=== PATIENT | female | born 1945 | race African-American/Black ===

== ENCOUNTER 2016-03-21 17:49 | Emergency (ER) | payer BC ==
[~2016-03-21] VITALS: Ht 167.6 cm; Wt 52.6 kg
[~2016-03-21 17:49] MED LIST: NKM
[2016-03-21 18:07] VITALS: BP 127/83
--- NOTE | 2016-03-21 18:32 | Emergency Room Report ---
History of Present Illness General Chief Complaint: Chest Pain Source: Patient Present Illness HPI She ate at [employer] and started feeling a strange feeling in her chest. She passed a lot of gas and burped at that time. She had laboratory done 3 weeks ago which was normal. She was concerned about her chest and came in for evaluation. She is squeamish about the emergency department and only wants a minimal work-up with EKG. Treadmill 3 years ago was normal. No [place], fever, cough, NVD, dyspnea, diaphoresis. Risk factors: none Allergies: Coded Allergies: SULFA (SULFONAMIDE ANTIBIOTICS) (Verified Allergy, 01/17/13) Patient History Past Medical History: see triage record Social History: Denies: smoking Social History Narrative works at [employer] Now: No Reviewed Nursing Documentation: PMH: Agreed, PSxH: Agreed Nursing Documentation-PMH Past Medical History: No Stated History Review of Systems All Other Systems: negative except mentioned in HPI Physical Exam Vital Signs Date Time Temp Pulse Resp B/P Pulse Ox O2 Delivery O2 Flow Rate FiO2 03/21/16 17:59 98.8 93 17 151/96 98 Sp02 EP Interpretation: reviewed, normal General Appearance: well appearing, no apparent distress, alert, GCS 15, non- toxic, thin Head: normocephalic Eyes: bilateral eye PERRL, bilateral eye normal inspection ENT: moist mucus membranes Neck: supple Respiratory: lungs clear, normal breath sounds Cardiovascular #1: regular rate, rhythm Cardiovascular #2: 2+ radial (R) Gastrointestinal: normal inspection, normal bowel sounds, non tender, no mass, non-distended, scaphoid Musculoskeletal: back normal, gait/station normal, normal range of motion Neurologic: alert, oriented x3, grossly normal Psychiatric: anxious Skin: normal inspection, warm/dry Medical Decision Making Diagnostic Impression: Primary Impression: chest pain, non specific ER Course Patient presents with abnormal feeling in chest after eating. Ddx: ACS, AMI, GERD, gas amongst others. Due to her age, full w/u for AMI/ACS indicated. Patient understands and refuses. EKG ordered. EKG normal. Patient understands need for further evaluation but refuses and is reassured with normal EKG. Patient insisting on following up with her own MD. EKG Diagnostic Results Rate: normal Rhythm: NSR ST Segments: no acute changes - LAE Rhythm Strip Diag. Results EP Interpretation: yes Rhythm: NSR, no PVC's, no ectopy Last Vital Signs Date Time Temp Pulse Resp B/P Pulse Ox O2 Delivery O2 Flow Rate FiO2 03/21/16 19:09 98.8 79 15 131/79 98 Room Air Status: improved Disposition: HOME, SELF-CARE Condition: Stable Tylor Mason M.D. Mar 21, 2016 18:32
[2016-03-21 19:09] VITALS: BP_SYST 127; BP_SYST 131; BP_DIAS 79; BP_DIAS 83
--- NOTE | 2016-03-22 12:16 | Cardiology Report ---
APPROVED REPORT EKG Measurement Heart [id number] Normal sinus rhythm Possible Left atrial enlargement Nonspecific T wave abnormality Abnormal ECG
== END 2016-03-21 19:09 | disposition home or self-care (01) ==
LOC: EMR 18:50
DX: R07.89 Other chest pain (principal); Z88.2 Allergy status to sulfonamides
CPT/HCPCS: 93005; 99283

== ENCOUNTER 2016-07-17 00:27 | Emergency (ER) | payer SELFPAY ==
[~2016-07-17] VITALS: Ht 165.1 cm; Wt 51.3 kg
[2016-07-17] MEDS ORDERED: NORVASC2.5 MG ORAL (00:35)
[2016-07-17 01:44] VITALS: BP 156/79
[2016-07-17 01:47] VITALS: BP 149/95
[2016-07-17 01:50] VITALS: BP 142/89
[2016-07-17 02:20] VITALS: BP 142/89
--- NOTE | 2016-07-17 02:33 | Emergency Room Report ---
History of Present Illness General Chief Complaint: Palpitations Source: Patient Present Illness HPI Patient is a 70-year-old female presented after increased palpitations. Patient stated that she began having palpitations after drinking a [place]. Patient had prior history of similar symptoms in the past. Patient been seen multiple times this emergency department for similar symptoms. Patient denied any prior cardiac history. She states that she takes a medication for blood pressure. She denies any fever patient has no dizzy or lightheaded. She denies any chest pain. Allergies: Coded Allergies: SULFA (SULFONAMIDE ANTIBIOTICS) (Verified Allergy, 01/17/13) Patient History Past Medical History: see triage record Last Menstrual Period: Menopause Now: No Reviewed Nursing Documentation: PMH: Agreed, PSxH: Agreed Nursing Documentation-PMH Past Medical History: No History, Except For Hx Hypertension: Yes Review of Systems All Other Systems: negative except mentioned in HPI Physical Exam Vital Signs Date Time Temp Pulse Resp B/P Pulse Ox O2 Delivery O2 Flow Rate FiO2 07/17/16 00:30 98.1 85 16 131/91 100 Room Air Sp02 EP Interpretation: reviewed, normal General Appearance: normal inspection, well appearing, no apparent distress, alert, GCS 15 Head: atraumatic ENT: normal ENT inspection, hearing grossly normal, normal voice Neck: normal inspection, full range of motion, supple, no bony tend Respiratory: normal inspection, lungs clear, normal breath sounds, no respiratory distress, no retraction, no wheezing Cardiovascular #1: regular rate, rhythm, no edema Gastrointestinal: normal inspection, normal bowel sounds, non tender, soft, no guarding, no hernia Genitourinary: no CVA tenderness Musculoskeletal: normal inspection, back normal, normal range of motion Neurologic: normal inspection, alert, responsive, speech normal Psychiatric: normal inspection, judgement/insight normal, mood/affect normal Skin: normal inspection, normal color, no rash Medical Decision Making Diagnostic Impression: Primary Impression: Palpitations ER Course Patient presented for palpitations. The differential diagnosis included was not limited to arrhythmia, thyroid storm, sepsis, anemia, myocardial infarction , alcohol withdrawal, stimulant abuse, caffeine overdose among others. Patient 's benign exam and does not appear to require any further imaging or laboratory testing at this time I EKG interpreted by me showed normal sinus rhythm rate of [address] or T wave changes. Patient was noted to have rhythm strip interpreted by me with normal sinus rhythm with a rate of 82 without PVCs or ectopy. Patient was observed in emergency department was stable throughout stay. The patient declined laboratory testing. The patient is advised followup with her own primary care physician. The patient is advised to follow up with primary care doctor in 1-2 days. Patient is advised to return if any worsening condition or if any changes in status that are concerning. Chest X-Ray Diagnostic Results Chest X-Ray Ordered: No Last Vital Signs Date Time Temp Pulse Resp B/P Pulse Ox O2 Delivery O2 Flow Rate FiO2 07/17/16 02:20 98.1 65 17 142/89 100 Room Air Status: improved Disposition: HOME, SELF-CARE Condition: Stable Referrals: NON PHYSICIAN (PCP) Patient Instructions: Palpitations Allan Ferreiar Jul 17, 2016 02:33
== END 2016-07-17 02:20 | disposition home or self-care (01) ==
LOC: EMR 00:47
DX: R00.2 Palpitations (principal); I10 Essential (primary) hypertension; Z88.2 Allergy status to sulfonamides
CPT/HCPCS: 93005; 99283